=== PATIENT | female | born 1970 | race Hispanic/Latino ===

== ENCOUNTER 2019-06-23 09:30 | Emergency (ER) | payer BC, SELFPAY | END 2019-06-23 10:36 | disposition home or self-care (01) | LOC: ERS 09:30 | DX: T22.111A Burn of first degree of right forearm, initial encounter (principal); F17.210 Nicotine dependence, cigarettes, uncomplicated; X10.0XXA Contact with hot drinks, initial encounter | CPT/HCPCS: 99283 ==

== ENCOUNTER 2020-06-06 21:40 | Inpatient (IN) | payer SELFPAY ==
[~2020-06-06 21:40] MED LIST: Iopamidol-370 76% 500 ML 1 ML ONE
[2020-06-06 22:30] LABS: Bacteria/HPF None Seen HPF (None Seen); Bilirubin Negative (Negative); Blood, Urine Negative (Negative); Clarity Clear (Clear); Glucose, Urine (Dipstick) Greater than 1000 mg/dL (Negative); Ketone, Urine Trace mg/dL (Negative); Leukocyte Negative Leu/uL (Negative); Nitrite Negative (Negative); Protein, Urine (Dipstick) 30 mg/dL (Neg-Trace); RBC/HPF 0-3 HPF (0-3); Specific Gravity, Urine 1.041 (1.002-1.036)
[2020-06-06] MEDS ORDERED: Ondansetron PF 4 MG/2 ML Vial ONE (23:14)
[2020-06-06] MEDS ORDERED: Morphine 4 MG/ML VIAL ONE (23:14)
[2020-06-06 23:42] LABS: ALT (SGPT) 49 U/L (8-55); AST (SGOT) 52 U/L (5-34); Alkaline Phosphatase 224 U/L (40-110); Anion Gap 14 mmol/L (10-20); BUN (Urea Nitrogen) 8 mg/dL (9.8-20.1); Bilirubin, Total 0.9 mg/dL (0.2-1.2); Calc. Creatinine Clearance 0 mL/min (70-130); Calcium 8.9 mg/dL (7.8-10.44); Carbon Dioxide 25 mmol/L (22-29); Chloride 102 mmol/L (98-107); Estimated GFR-MDRD 73; Globulin 3.8 g/dL (2.4-3.5); Glucose 209 mg/dL (70-105); Potassium 3.4 mmol/L (3.5-5.1); Protein, Total 7.8 g/dL (6.0-8.3); Sodium 138 mmol/L (136-145)
--- NOTE | 2020-06-06 23:52 | CT ---
CT abdomen and pelvis with IV contrast HISTORY: Abdominal pain. Hematochezia. FINDINGS: The lung bases are clear. Gallbladder is surgically absent. The liver is diffusely hypodense. Solid organs are intact. No evidence of bowel obstruction or inflammation. Appendix not visualized, possibly surgically absent . A 2.3 cm hyperdense lesion within the left side of the uterine myometrium likely represents a small f ibroid. IMPRESSION : No bowel abnormalities are demonstrated to explain hematochezia. Hepato-steatosis. Prior cholecystectomy. Mild fibroid involvement of the uterus.
[2020-06-07 00:21] LABS: Hemoglobin 8.9 g/dL (12.0-16.0); Mean Corpuscular HGB CONC 29.9 g/dL (32.0-36.0); Mean Corpuscular Volume 63.5 fL (78.0-98.0); Mean Platelet Volume 7.8 fL (7.4-10.4); Platelet Count 269 thou/uL (130-400); RBC Distribution Width 19.4 % (11.5-14.5); Red Blood Cell (RBC) Count 4.66 mill/uL (4.20-5.40); White Blood Cell (WBC) Count 9.7 thou/uL (4.8-10.8)
[2020-06-07 00:22] LABS: Reflex for Review?? YES
[2020-06-07 00:33] LABS: #Basophils 0.1 thou/uL (0.0-0.2); #Eosinphils 0.2 thou/uL (0.0-0.7); #Lymphocytes 2.7 thou/uL (1.20-3.40); #Monocytes 0.6 thou/uL (0.11-0.59); #Neutrophils 6.2 thou/uL (1.40-6.50); %Basophils 0.6 % (0.0-1.0); %Eosinophils 1.9 % (0.0-10.0); %Lymphocytes 28.1 % (21.0-51.0); %Monocytes 5.9 % (0.0-10.0); %Neutrophils 63.5 % (42.0-75.0); Anisocytosis MODERATE=16-30 cells (100X) (0-5/hpf); Elliptocytes SLIGHT = 2-5 cells (100X) (0-1/hpf); MDiff Complete? YES; Microcytosis SLIGHT = 6-15 cells (100X) (0-5/hpf); Polychromasia SLIGHT = 2-3 cells (100X) (0-2/hpf)
[2020-06-07] MEDS ORDERED: Pantoprazole 40 MG VIAL ONE ×2 (01:02→08:25)
[2020-06-07] MEDS ORDERED: Morphine 4 MG/ML VIAL ONE ×3 (01:10→12:36)
--- NOTE | 2020-06-07 02:44 | PDOC.HHP ---
Hospitalist HPI - History of Present Illness Melena and bright red blood per rectum History of Present Illness: 50-year-old morbidly obese woman with no known past medical history presented to the emergency department with a complaint of 3-day history of melena and passing bright red blood per rectum. Patient reports melena and bloody diarrhea with associated abdominal pain. Pain located in the epigastrium. Maximum intensity 10/10, relieved by IV morphine. No vomiting. Patient denies any fever. This is her first episode of GI bleed. Her hemoglobin in the ED was 8.9. CT abdomen and pelvis done in the ED was unremarkable. No bloody bowel movements since presentation to the ED. she was complaining of epigastric pain during my examination. She takes ibuprofen sometimes for pain. Patient is admitted for further management. Hospitalist ROS - Review of Systems Other: Except as documented, all other systems reviewed and negative. Hospitalist History - Past Medical History Other Medical History: No pertinent medical history. - Family History Family History: reports: diabetes mellitus (Moderate) - Social History Smoking Status: Current every day smoker Alcohol: reports: Occassional Drugs: reports: none Living Situation: With Family - Exam General Appearance: NAD, awake alert General - other findings: Morbidly obese Eye: PERRL, anicteric sclera ENT: normocephalic atraumatic, moist mucosa Neck: supple, symmetric, no JVD Heart: RRR, no murmur, no gallops Respiratory: CTAB, no wheezes, no rales, no ronchi Gastrointestinal: soft, tender to palpation (Epigastrium and right upper quad rant) Extremities: no cyanosis, no edema Skin: normal turgor, no rashes Neurological: cranial nerve grossly intact, no weakness, no focal deficits Musculoskeletal: normal tone, normal strength Psychiatric: normal affect, normal behavior, A&O x 3 Hospitalist Results - Labs Result Diagrams: 06/06/20 23:14 06/06/20 23:14 Lab results: WBC 9.7 thou/uL (4.8-10.8) 06/06/20 23:14 Hgb 8.9 g/dL (12.0-16.0) L 06/06/20 23:14 Hct 29.6 % (36.0-47.0) L 06/06/20 23:14 MCV 63.5 fL (78.0-98.0) L 06/06/20 23:14 Plt Count 269 thou/uL (130-400) 06/06/20 23:14 Neutrophils % 63.5 % (42.0-75.0) 06/06/20 23:14 Sodium 138 mmol/L (136-145) 06/06/20 23:14 Potassium 3.4 mmol/L (3.5-5.1) L 06/06/20 23:14 Chloride 102 mmol/L (98-107) 06/06/20 23:14 Carbon Dioxide 25 mmol/L (22-29) 06/06/20 23:14 BUN 8 mg/dL (9.8-20.1) L 06/06/20 23:14 Creatinine 0.82 mg/dL (0.6-1.1) 06/06/20 23:14 Glucose 209 mg/dL (70-105) H 06/06/20 23:14 Calcium 8.9 mg/dL (7.8-10.44) 06/06/20 23:14 Total Bilirubin 0.9 mg/dL (0.2-1.2) 06/06/20 23:14 AST 52 U/L (5-34) H 06/06/20 23:14 ALT 49 U/L (8-55) 06/06/20 23:14 Alkaline Phosphatase 224 U/L (40-110) H 06/06/20 23:14 Serum Total Protein 7.8 g/dL (6.0-8.3) 06/06/20 23:14 Albumin 4.0 g/dL (3.5-5.0) 06/06/20 23:14 Urine Ketones Trace mg/dL (Negative) A 06/06/20 22:05 Urine Blood Negative (Negative) 06/06/20 22:05 Urine Nitrite Negative (Negative) 06/06/20 22:05 Ur Leukocyte Esterase Negative Francisco/uL (Negative) 06/06/20 22:05 Urine RBC 0-3 HPF (0-3) 06/06/20 22:05 Urine WBC 4-6 HPF (0-3) A 06/06/20 22:05 Ur Squamous Epith Cells 7-10 HPF (0-3) A 06/06/20 22:05 Urine Bacteria None Seen HPF (None Seen) 06/06/20 22:05 Hospitalist H&P A/P - Problem (1) GI bleed Code(s): K92.2 - GASTROINTESTINAL HEMORRHAGE, UNSPECIFIED Status: Acute (2) Acute blood loss anemia Code(s): D62 - ACUTE POSTHEMORRHAGIC ANEMIA Status: Acute (3) Morbid obesity Code(s): E66.01 - MORBID (SEVERE) OBESITY DUE TO EXCESS CALORIES Status: Acute (4) Hyperglycemia Code(s): R73.9 - HYPERGLYCEMIA, UNSPECIFIED Status: Acute - Plan Plan: Admit to the medical floor. Keep n.p.o. Start IV Protonix. Hydrate with IV normal saline. Monitor H&H every 6 hours. Transfuse as needed for hemoglobin less than 7. GI consult. Check hemoglobin A1c.
[2020-06-07] MEDS: Dextrose 5 % And 0.9 % NaCl 1,000 ML IV SCH ×2 (03:46→16:46)
[2020-06-07] MEDS ORDERED: Morphine 2 MG/ML VIAL ONE (04:30)
[2020-06-07] MEDS: Morphine 2 MG/ML VIAL SLOW IVP PRN ×5 (04:33→21:49)
[2020-06-07 06:02] LABS: Hemoglobin A1c 9.1 % (4.0-6.0)
[2020-06-07 06:12] LABS: ALT (SGPT) 55 U/L (8-55); AST (SGOT) 69 U/L (5-34); Albumin 3.8 g/dL (3.5-5.0); Alkaline Phosphatase 203 U/L (40-110); Anion Gap 13 mmol/L (10-20); BUN (Urea Nitrogen) 8 mg/dL (9.8-20.1); Bilirubin, Total 1.1 mg/dL (0.2-1.2); Calc. Creatinine Clearance 0 mL/min (70-130); Calcium 8.5 mg/dL (7.8-10.44); Carbon Dioxide 25 mmol/L (22-29); Chloride 102 mmol/L (98-107); Estimated GFR-MDRD 79; Globulin 3.4 g/dL (2.4-3.5); Glucose 219 mg/dL (70-105); Potassium 3.5 mmol/L (3.5-5.1); Protein, Total 7.2 g/dL (6.0-8.3); Sodium 136 mmol/L (136-145)
[2020-06-07 06:14] LABS: Hemoglobin 8.3 g/dL (12.0-16.0)
[2020-06-07 06:27] LABS: INR-International Normal Ratio 1.1; Prothrombin Time 14.3 sec (12.0-14.7)
[2020-06-07] MEDS: Pantoprazole 40 MG VIAL IVP SCH ×2 (08:40→20:56)
[2020-06-07] MEDS ORDERED: Ondansetron PF 4 MG/2 ML Vial ONE (09:24)
[2020-06-07] MEDS: Ondansetron PF 4 MG/2 ML Vial IVP PRN ×3 (09:31→21:48)
[2020-06-07 11:03] LABS: SARS-CoV-2 MS2 Positive; SARS-CoV-2 N Gene Negative; SARS-CoV-2 S Gene Negative; SARS-CoV-2 by NAA Not Detected (NotDetected); SARS-CoV-2 orf1ab Negative
[2020-06-07] MEDS: Acetaminophen 325 MG/10.15 ML UDCUP PO PRN (12:30)
[2020-06-07] MEDS ORDERED: Acetaminophen 325 MG TAB ONE (12:33)
[2020-06-07 12:50] LABS: Hemoglobin 8.1 g/dL (12.0-16.0)
[2020-06-07 15:05] VITALS: BMI 43.0
[2020-06-07] MEDS ORDERED: GoLYTELY 4,000 ml Bottle PO SCH (17:00)
--- NOTE | 2020-06-07 17:21 | PDOC.EVN ---
Event Note - Event Note Event Note: Chart reviewed. Patient seen. Denies chest pain or shortness of breath. Vital signs are stable. Awaiting gastroenterology service consult.
[2020-06-07 18:15] LABS: Hemoglobin 8.2 g/dL (12.0-16.0)
[2020-06-08 00:16] LABS: Hemoglobin 7.8 g/dL (12.0-16.0)
[2020-06-08] MEDS: Morphine 2 MG/ML VIAL SLOW IVP PRN ×4 (03:46→21:36)
[2020-06-08] MEDS: Ondansetron PF 4 MG/2 ML Vial IVP PRN ×3 (03:46→21:37)
[2020-06-08] MEDS: Dextrose 5 % And 0.9 % NaCl 1,000 ML IV SCH ×2 (06:37→14:10)
[2020-06-08] MEDS: Pantoprazole 40 MG VIAL IVP SCH ×2 (08:35→21:40)
[2020-06-08] MEDS ORDERED: FLU VACC QS2020-21(6MOS UP)/PF 60 MCG/0.5 ML SYRINGE IM ONE (09:00)
--- NOTE | 2020-06-08 09:13 | CON ---
DATE OF CONSULTATION: 06/07/2020 REASON FOR CONSULTATION: Abdominal pain, hematochezia. HISTORY OF PRESENT ILLNESS: Mindi Zambrano is a very pleasant 50-year-old female seen in the ER today with abdominal pain hematochezia. The patient has been having abdominal pain over the last 3 to 4 days. The pain is over the epigastric area and periumbilical area and also across the . The pain is mild to moderate. She has seen rectal bleeding at the same duration. The bleeding is bright red and does not appear to be melenic stool. She says the blood is definitely bright red blood. Since admission to the hospital, she has had no bleeding. She had no similar episodes in the past. The patient denies any straining or pushing hard to have bowel movements. The patient has had a cholecystectomy many years ago for gallstone, and since her surgery, she has had always loose stools, multiple times. The patient had abdominal CAT scan in the ER, which revealed no pathology. Since admission, the patient has had no stool or any bleeding anymore. She has some abdominal pain off and on, but the pain is less than before. There is no nausea, no vomiting, no . There is no family history of any colon cancer. She has no other medical history. ALLERGIES: PENICILLIN, CAUSES ANAPHYLACTIC SHOCK. SOCIAL HISTORY: Patient is a . She does smoke less than 1/2 packet of cigarettes per day. She does not drink alcohol. No drug abuse. MEDICAL ILLNESS: Obesity. Otherwise, no history of hypertension, diabetes, heart disease, or lung disease. SURGERIES: 1. . 2. Appendectomy. 3. Cholecystectomy. FAMILY HISTORY: Mother of massive heart attack. She also had diabetes and hypertension. No family history of any cancer. MEDICATION AT HOME: None. SYSTEM REVIEW: 10-point system review; FACILITY DESIGNER: No syncope. No TIA. No seizure disorder. HEAD: No chronic headache. No syncope. EYES: No diplopia. No impaired vision. ENT: Normal. NECK: No stiffness or any limitation of movement. BREASTS: No masses. LUNGS: No chronic coughing, hemoptysis, dyspnea. CARDIOVASCULAR SYSTEM: No chest pain. No palpitation. No dyspnea, orthopnea, or PND. GI: Abdominal pain, hematochezia. : No dysuria, hematuria. MUSCULOSKELETAL: Nonrelevant. NEURO: Nonrelevant. ENDOCRINE: Nonrelevant. HEMATOLOGICAL: Nonrelevant. PHYSICAL EXAMINATION: GENERAL: She is obese, appears very comfortable. She is a good historian. VITAL SIGNS: She is afebrile. Pulse is 76, blood pressure 130/70. HEENT: Conjunctivae are clear. NECK: Supple. No adenitis or thyromegaly noted. CARDIOVASCULAR SYSTEM: Normal heart sounds. LUNGS: Clear to auscultation. ABDOMEN: Pendulous. Soft. However, she is diffusely tender all over the abdomen. There is no rebound or guarding. EXTREMITIES: Reveal no edema. LABORATORY DATA: Shows mild anemia. Hemoglobin on admission 8.9, dropping down to 8.1 today. Hematocrit 29.6 and dropping to 27.6, MCV 63.5, platelet count is 269,000, WBC 9700. Hemoglobin is stable the last 2 blood draws, one at 5:30 this morning and another one at 12:35. Her chemistry panel: Sodium 136, potassium 3.5, chloride 100, bicarb is 25, BUN is 8, creatinine 0.77, glucose 219, calcium 8.5, bilirubin 1.1, AST is 69, ALT 55, alkaline phosphatase 203, albumin 3.8. An abdominal CAT scan done show no acute pathology. She does have fatty liver on CAT scan. No dilation of the CBD. CLINICAL IMPRESSION: 1. Abdominal pain, hematochezia, etiology unclear. Anemia is likely to be . The patient had not seen a doctor for many years. We do not have baseline CBC. 2. Obesity. 3. Fatty liver. 4. Cholecystectomy. 5. Appendectomy. 6. . RECOMMENDATION: 1. Clear liquid diet. 2. Serial H and H. 3. Empiric PPI. 4. EGD and colonoscopy tomorrow. I did talk to Ms. Zambrano about the procedure in detail. I explained about the prep including drinking GoLYTELY prep, etc. She fully understood the procedure and risks. I will plan for EGD and colonoscopy tomorrow. Also recommend followup LFTs and obtain viral markers. Job ID: [id number]
[2020-06-08] MEDS ORDERED: PROPOFOL 200 MG/20 ML VIAL ONE (09:39)
--- NOTE | 2020-06-08 12:06 | OP ---
DATE OF PROCEDURE: 06/08/2020 PROCEDURES PERFORMED: 1. Esophagogastroduodenoscopy (diagnostic). 2. Colonoscopy (diagnostic). INDICATION FOR PROCEDURE: Melena, hematochezia, anemia. DESCRIPTION OF PROCEDURE: After the risks and benefits of the procedures were explained to the patient including risks of bleeding, infection, perforation, reactions to anesthesia, aspiration and/or pain, informed consent was obtained. The patient was then taken to the endoscopy suite, where she was maneuvered into the left lateral decubitus position, followed by introduction of deep sedation via propofol and anesthesia support. Once adequate sedation was achieved, the standard gastroscope was introduced into the mouth with intubation of the esophagus, stomach, and the proximal small intestines with the findings listed below. On conclusion of this portion of the procedure, all equipment was removed from the patient and the bed was rotated 180 degrees in anticipation of the colonoscopy. After a digital rectal examination was performed, the standard colonoscope was then introduced into the rectum and advanced to the terminal ileum without difficulty. The quality of the prep was good with a moderate amount of retained liquid stool that was easily suctioned with the colonoscope. The patient tolerated the procedures well with no immediate perioperative complications. On conclusion of the procedure, all equipment was removed from the patient. She was transferred to PACU in satisfactory condition. EGD FINDINGS: Esophagus: Normal-appearing mucosa was seen in the proximal, mid, and distal esophagus. There was no evidence of erosions, ulcerations, mass lesions, or active/recent bleeding. Stomach: Normal-appearing mucosa was seen in the gastric cardia, fundus, body, greater curvature, antrum, and incisura. There was no evidence of erosions, ulcerations, mass lesions, or active/recent bleeding. Duodenum: Normal-appearing mucosa was seen in both the duodenal bulb and second portion of the duodenum. There was no evidence of erosions, ulcerations, mass lesions, or active/recent bleeding. IMPRESSION: 1. Normal upper endoscopy. 2. No bleeding seen during this examination. COLONOSCOPY FINDINGS: Digital rectal exam: Small external hemorrhoids along with perianal skin tags were seen on external examination, however, large internal hemorrhoids were palpated with no abnormalities and sphincterotome. Colon findings: Normal-appearing mucosa was seen within the terminal ileum. Normal mucosa was also seen at the ileocecal valve and appendiceal orifice. Normal-appearing mucosa was then seen in the cecum, ascending colon, transverse colon, descending colon, sigmoid colon, and rectum. There was no evidence of diverticulosis within the sigmoid colon. However, on rectal retroflexion, large internal hemorrhoids were seen with one particular hemorrhoid seen prolapsing through the anal canal during the procedure and overlying ulceration. There was also significant hyperemia associated with these internal hemorrhoids. IMPRESSION: 1. Large internal hemorrhoids with small ulceration along a larger prolapsing hemorrhoids, being a likely source of her recent hematochezia. 2. Small external hemorrhoids with perianal skin tags (likely not contributing to her recent gastrointestinal bleed). 3. Otherwise, normal colonoscopy. RECOMMENDATIONS: 1. Would continue to trend the patient's H and H and transfuse as necessary to maintain an H and H of 7/21. 2. Continue to monitor clinically for signs of active GI bleeding. 3. Would recommend hydrocortisone suppositories as part of treatment for her large internal hemorrhoids. 4. Would recommend a higher fiber diet and avoidance of spending prolonged amounts of time in the toilet as part of conservative measures for internal and external hemorrhoids. 5. If the patient's H and H stay stable over the next 24 hours, she could be potentially discharged to the outpatient setting and following up with Dr. Clair ely. 6. If the patient does continue to have increased bleeding and/or decrease in her H and H, I would then consider a tagged red cell scan for further localization of her bleeding. We will continue to follow peripherally for now. Please call with any questions. Job ID: [id number]
[2020-06-08] MEDS ORDERED: Insulin Regular 300 UNITS/3 ML VIAL SC PRN ×2 (22:24)
[2020-06-08] MEDS ORDERED: Dextrose 50% Abboject 50 ML SYRINGE SLOW IVP PRN (22:24)
[2020-06-08] MEDS ORDERED: Dextrose 5% in Water 1,000 ML IV PRN (22:24)
--- NOTE | 2020-06-08 22:27 | PDOC.HOSPP ---
- Subjective Encounter Date: 06/08/20 Encounter Time: 15:00 Subjective: Patient seen and examined for GI bleeding. Underwent EGD and colonoscopy. No new rectal bleeding. Denies any nausea, vomiting or abdominal pain. No chest pain or shortness of breath reported. - Objective Vital Signs & Weight: Vital Signs (12 hours) Temp Pulse Resp BP BP Pulse Ox 06/08/20 19:40 98.6 F 86 18 112/68 97 06/08/20 16:42 97.9 F 87 16 124/65 99 06/08/20 13:00 88 16 121/71 99 06/08/20 11:55 98.5 F 88 20 105/69 98 Weight Admit Weight 235 lb Weight 235 lb I&O: 06/07/20 06/08/20 06/09/20 06:59 06:59 06:59 Intake Total 1300 1600 Balance 1300 1600 Result Diagrams: 06/07/20 23:58 06/07/20 05:35 Radiology Reviewed by me: Yes (CT abdomenNo acute abnormality) Hospitalist ROS - Review of Systems Respiratory: denies: cough, dry, shortness of breath, hemoptysis, SOB with excertion, pleuritic pain, sputum, wheezing, other Cardiovascular: denies: chest pain, palpitations, orthopnea, paroxysmal noc. dyspnea, edema, light headedness, other - Medication Medications: Active Medications Generic Name Dose Route Start Last Admin Trade Name Freq PRN Reason Stop Dose Admin Acetaminophen 650 mg 06/07/20 12:27 06/07/20 12:30 Acetaminophen 325 Mg/10.15 Ml Udcup PO 650 mg Q6H PRN Administration Pain Ondansetron HCl 4 mg 06/07/20 08:50 06/08/20 21:37 Ondansetron Pf 4 Mg/2 Ml Vial IVP 4 mg Q6H PRN Administration Nausea/Vomiting - Exam General Appearance: NAD Neck: supple, no JVD Heart: RRR, no gallops, no rubs, normal peripheral pulses Respiratory: no wheezes, no rales, no ronchi, normal chest expansion Gastrointestinal: soft, non-tender, normal bowel sounds, no guarding, no rigidity Extremities: no cyanosis, no clubbing Neurological: no new deficit Musculoskeletal: generalized weakness Psychiatric: normal affect, A&O x 3 Hosp A/P - Plan DVT proph w/SCDs Acute GI bleeding due to internal hemorrhoids Acute blood loss anemia Generalized weakness due to above Fibroid uterus Hypokalemia Chronic hypochromic microcytic anemia suspected due to iron deficiency Morbid obesity with a BMI 43 New diagnosis of diabetes with a hemoglobin A1c 9.1 Abnormal LFTs probably due fatty liver Fibroid uterus on the CT scan Penicillin ALLERGY Plan: Monitor H&H closely. Change PPI to po. Check orthostatic vitals. One dose of IV iron. Add multivitamins. Patient was advised to take iron supplementation on a chronic basis. Consult dietitian for education on dietary modification for internal hemorrhoids as well as diabetes mellitus type II.
[2020-06-09] MEDS: Hydrocortisone Acetate 25 MG Suppository PR SCH ×4 (01:00→21:15)
[2020-06-09] MEDS: Acetaminophen 325 MG/10.15 ML UDCUP PO PRN ×2 (02:17→09:44)
[2020-06-09] MEDS ORDERED: Iron Sucrose Complex 200 MG in Sodium Chloride 0.9% 100 ML IVPB SCH (07:00)
[2020-06-09] MEDS ORDERED: Iron, Sodium Ferric Gluconate 250 MG in Sodium Chloride 0.9% 100 ML IVPB SCH (07:00)
[2020-06-09] MEDS ORDERED: Acetaminophen 650 MG/20.3 ML UDCUP PO PRN (07:12)
[2020-06-09 07:23] LABS: Hemoglobin 7.7 g/dL (12.0-16.0); Platelet Count 242 thou/uL (130-400)
[2020-06-09] MEDS: Multivit, Therapeutic 1 TAB PO SCH (09:43)
[2020-06-09] MEDS: Potassium Chloride 20 MEQ TAB PO SCH ×2 (09:43→17:24)
[2020-06-09] MEDS ORDERED: diphenhydrAMINE 50 MG/ML VIAL ONE (13:15)
[2020-06-09] MEDS ORDERED: EPINEPHrine 1 mg/ml MDV (1ml Charge) IM PRN (13:16)
[2020-06-09] MEDS ORDERED: Famotidine/PF 20 mg/2ml Vial SLOW IVP SCH ×2 (13:30→21:00)
[2020-06-09] MEDS ORDERED: diphenhydrAMINE 50 MG/ML VIAL IVP SCH (14:00)
[2020-06-09] MEDS ORDERED: diphenhydrAMINE 50 MG/ML VIAL IM SCH (14:45)
--- NOTE | 2020-06-09 18:42 | PDOC.HOSPP ---
- Subjective Encounter Date: 06/09/20 Encounter Time: 09:30 Subjective: Patient seen and examined for GI bleeding. No overnight events. No new rectal bleeding. Denies any nausea, vomiting or abdominal pain. - Objective Vital Signs & Weight: Vital Signs (12 hours) Temp Pulse Resp BP Pulse Ox 06/09/20 16:00 98.5 F 84 17 131/67 96 06/09/20 12:08 98.5 F 85 19 110/73 98 06/09/20 07:41 94 L 06/09/20 07:12 98.5 F 80 19 103/61 94 L Weight Admit Weight 235 lb Weight 235 lb I&O: 06/08/20 06/09/20 06/10/20 06:59 06:59 06:59 Intake Total 1300 1600 900 Balance 1300 1600 900 Result Diagrams: 06/09/20 07:10 06/07/20 05:35 Additional Labs: Accuchecks 06/09/20 06/09/20 16:09 06:22 POC Glucose 182 H 152 H Abnormal Lab Results - Last 48 hrs 06/07/20 23:58: Hgb 7.8 L, Hct 26.9 L 06/09/20 07:10: Hgb 7.7 L, Hct 26.1 L Laboratory Tests 06/07/20 05:35 Hemoglobin A1c 9.1 H Hospitalist ROS - Review of Systems Cardiovascular: denies: chest pain, palpitations, orthopnea, paroxysmal noc. dyspnea, edema, light headedness, other Gastrointestinal: denies: nausea, vomiting, abdominal pain, diarrhea, constipation, melena, hematochezia, other - Medication Medications: Active Medications Generic Name Dose Route Start Last Admin Trade Name Freq PRN Reason Stop Dose Admin Hydrocortisone Acetate 25 mg 06/08/20 21:00 06/09/20 09:43 Hydrocortisone Acetate 25 Mg Suppository KS 25 mg BID ALBA Administration Multivitamins 1 tab 06/09/20 09:00 06/09/20 09:43 Multivit, Therapeutic 1 Tab PO 1 tab DAILY ALBA Administration Ondansetron HCl 4 mg 06/07/20 08:50 06/08/20 21:37 Ondansetron Pf 4 Mg/2 Ml Vial IVP 4 mg Q6H PRN Administration Nausea/Vomiting Pantoprazole Sodium 40 mg 06/09/20 09:00 06/09/20 09:43 Pantoprazole 40 Mg Tab PO 40 mg DAILY ALBA Administration Potassium Chloride 20 meq 06/09/20 08:00 06/09/20 17:24 Potassium Chloride 20 Meq Tab PO 20 meq BID-WM ALBA Administration - Exam General Appearance: NAD Neck: supple, no JVD Heart: RRR, no gallops, no rubs, normal peripheral pulses Respiratory: no wheezes, no rales, no ronchi, normal chest expansion Gastrointestinal: soft, non-tender, non-distended, normal bowel sounds, no guarding, no rigidity Extremities: no cyanosis, no clubbing Neurological: no new deficit Psychiatric: normal affect, A&O x 3 Hosp A/P - Plan DVT proph w/SCDs Acute GI bleeding due to internal hemorrhoids Acute blood loss anemia Generalized weakness due to above Fibroid uterus Hypokalemia Chronic hypochromic microcytic anemia suspected due to iron deficiency Morbid obesity with a BMI 43 New diagnosis of diabetes with a hemoglobin A1c 9.1 Abnormal LFTs probably due fatty liver Fibroid uterus on the CT scan Penicillin ALLERGY Plan: Plan discussed with gastroenterology. Continue hydrocortisone suppository for internal hemorrhoids. Will start IV iron. Continue other medications as above. Patient is stable for discharge after iron infusion. Patient was educated on high-fiber diet and diabetes. Update at 1 PM: Patient had an allergic reaction after iron infusion. She was started on IV Benadryl and Pepcid Pepcid she continues to feel generally weak and fatigue along with dizziness. Fall precautions. Will monitor overnight and possible discharge in a.m. if stable. Continue Benadryl and Pepcid for now. EpiPen as needed.
[2020-06-09 19:58] VITALS: TEMP 98.6
--- NOTE | 2020-06-09 20:57 | PRG ---
DATE OF SERVICE: 06/09/2020 REASON FOR CONSULTATION: Abdominal pain, hematochezia. SUBJECTIVE: After undergoing both the upper endoscopy and colonoscopy yesterday, the patient has not had any further episodes of abdominal pain nor hematochezia. However, earlier today with the infusion of IV iron, she did have increased swelling of her arms, legs, and shortness of breath concerning for possible allergic reactions/adverse reaction. However, this subsided with initiation of IV Benadryl and Pepcid. Otherwise, she denies any nausea, vomiting, fevers, chills, abdominal pain, hematemesis, melena, or hematochezia. OBJECTIVE: VITAL SIGNS: Temperature 98.6, pulse 83, blood pressure 123/68, respiratory rate 18, and saturating 99% on 3 L nasal cannula. GENERAL: The patient was lying in bed, in no acute distress. Alert and oriented x4. Morbidly obese. CARDIOVASCULAR: Regular rate and rhythm. RESPIRATORY: Clear to auscultation bilaterally. ABDOMEN: Normoactive bowel sounds. Soft, nontender, and nondistended . EXTREMITIES: No cyanosis, clubbing, or edema. LABORATORY DATA: Hemoglobin of 7.7, hematocrit 26.1. IMAGING DATA: The patient underwent both upper and lower endoscopy on June 08, 2020 with a normal upper endoscopy during that portion of the examination. However, during the colonoscopy, she had significantly large internal hemorrhoids with a small ulceration along a larger prolapsing internal hemorrhoid likely contributing to her recent hematochezia. ASSESSMENT AND PLAN: The patient is a 50-year-old female with past medical history of morbid obesity, presenting with complaints of dark-colored stools (likely due to Pepto-Bismol administration) and hematochezia secondary to internal hemorrhoids. Gastrointestinal bleeding. The patient initially presented to the hospital with increased generalized abdominal pain in addition to darker-colored stools, concerning for the presence of melena, hematochezia, and decreased H and H when compared to previous. She subsequently underwent upper endoscopy and colonoscopy on June 08, 2020 with normal findings seen on the upper endoscopy and only large internal hemorrhoids on colonoscopy with ulceration likely contributing to her hematochezia. Upon further questioning the patient, her darker colored stools were seen in conjunction with taking Pepto-Bismol as an outpatient with the bismuth substrate likely contributing to the darker black colored stools. Since the colonoscopy, the patient has had no further episodes of hematochezia, and abdominal pain has significantly improved. RECOMMENDATIONS: 1. Would continue to trend her H and H and transfuse as necessary to maintain an H and H of /. 2. Continue to monitor clinically for signs of active GI bleeding. 3. We will continue hydrocortisone suppositories as part of treatment for her large internal hemorrhoids likely contributing to her bleeding. 4. Would recommend a higher fiber diet. 5. If the patient continues to have any increased bleeding or significant decrease in her H and H, I would then consider a tagged red cell scan for further localization of her bleeding. Given the stabilization of her status, she could be potentially discharged to an outpatient setting with followup with Dr. Self in 2 to 3 weeks. We will sign off at this time. Please call with any questions. Job ID: [id number]
[2020-06-09] MEDS: diphenhydrAMINE 25 MG CAP PO SCH (21:15)
[2020-06-09] MEDS: Famotidine 20 MG TAB PO SCH (21:15)
[2020-06-10 07:43] VITALS: BP 106/62
[2020-06-10] MEDS: diphenhydrAMINE 25 MG CAP PO SCH (08:59)
[2020-06-10] MEDS: Multivit, Therapeutic 1 TAB PO SCH (08:59)
[2020-06-10] MEDS: Famotidine 20 MG TAB PO SCH (08:59)
[2020-06-10] MEDS: Potassium Chloride 20 MEQ TAB PO SCH (08:59)
[2020-06-10] MEDS: Hydrocortisone Acetate 25 MG Suppository PR SCH (09:00)
--- NOTE | 2020-06-10 17:20 | DIS ---
DATE OF ADMISSION: 06/07/2020 DATE OF DISCHARGE: 06/10/2020 DISCHARGE DISPOSITION: Home. PRIMARY DISCHARGE DIAGNOSIS: Lower gastrointestinal bleed secondary to large internal hemorrhoids. SECONDARY DISCHARGE DIAGNOSES: Obesity, diabetes mellitus type 2. PROCEDURES DONE DURING HOSPITALIZATION: The patient has had upper and lower endoscopies done, which showed normal upper endoscopy with no bleeding seen. Colonoscopy showed large internal hemorrhoids with small ulceration along a large prolapsing hemorrhoids, likely source of her recent hematochezia. Small external hemorrhoids with perianal skin tags likely not contributing to GI bleed. CT of the abdomen and pelvis with contrast done showed no bowel abnormalities, hepatic steatosis, mild fibroid of the uterus. H and H of 7.7 and 26, platelet count 242. INR 1.1. BUN 8, creatinine 0.7. HbA1c 9.1. Albumin 3.8. COVID-19 PCR was not detected on 06/07/2020. DISCHARGE MEDICATIONS: 1. Hydrocortisone rectal suppositories twice daily for the hemorrhoids. 2. Ferrous sulfate 325 mg p.o. twice daily. 3. Multivitamin one tablet once daily. 4. MiraLAX 17 g daily. INPATIENT CONSULT: Dr. Bert oJ for Gastroenterology. DISCHARGE PLAN: The patient to follow up with Dr. Self in 10 days. She needs to follow up with her primary care physician at [facility] in 1 week. BRIEF COURSE DURING HOSPITALIZATION: The patient initially got admitted on the with complaints of bright red blood per rectum. She has been passing these for the last 3 days prior to arrival. In view of this, she has had consultation with Dr. Bert Jo. A CT of the abdomen and pelvis with contrast done did not reveal any significant abnormalities. She has had both upper and lower endoscopies done, which showed hemorrhoids both internal and external. Her internal hemorrhoids is the likely cause of her bleeding. This has completely stopped at the time of discharge. She has had iron deficiency anemia and an attempt was done to give her IV iron, but the patient developed reaction for the same. She has been supplemented with oral iron. She is hemodynamically stable, ambulating, and is wanting to go home today. She is advised to follow up with primary care physician in 1 week. Please note I have seen and examined the patient on the day of discharge. Job ID: [id number]
== END 2020-06-10 12:18 | disposition home or self-care (01) | DRG 394 ==
LOC: ERS 21:40 → ERHOLD 06-07 01:21 → T4-A 06-07 14:57
PROVIDERS: ADMIT Internal Medicine; ATTEND Internal Medicine
PROC: 0DJ08ZZ Inspection of Upper Intestinal Tract, Via Natural or Artificial Opening Endoscopic (ICD-10-PCS; principal; 2020-06-08)
PROC: 0DJD8ZZ Inspection of Lower Intestinal Tract, Via Natural or Artificial Opening Endoscopic (ICD-10-PCS; 2020-06-08)
DX: K64.8 Other hemorrhoids (principal); D62 Acute posthemorrhagic anemia; Z68.41 Body mass index [BMI] 40.0-44.9, adult; K62.6 Ulcer of anus and rectum; Z20.828 Contact with and (suspected) exposure to other viral communicable diseases; D25.9 Leiomyoma of uterus, unspecified; E66.01 Morbid (severe) obesity due to excess calories; E87.6 Hypokalemia; F17.210 Nicotine dependence, cigarettes, uncomplicated; D50.9 Iron deficiency anemia, unspecified; E11.9 Type 2 diabetes mellitus without complications; K64.4 Residual hemorrhoidal skin tags; K76.0 Fatty (change of) liver, not elsewhere classified; Z88.0 Allergy status to penicillin; Z90.49 Acquired absence of other specified parts of digestive tract
CPT/HCPCS: 36415; 36416; 74177; 80053; 81003; 81015; 83036; 85014; 85018; 85025; 85049; 85060; 85610; 86850; 86900; 86901; 87635; 90471; 90662; 90732; 96374; 96375; 96376; C9113; G0008; G0009; J1200; J2270; J2405; J2704; J2916; J3490; Q0163; Q9967; S0028; U0003

== ENCOUNTER 2022-09-27 16:12 | Inpatient (IN) | payer SELFPAY ==
[2022-09-27 17:03] LABS: #Eosinphils 0.2 thou/uL (0.0-0.7); #Lymphocytes 2.2 thou/uL (1.20-3.40); #Monocytes 0.5 thou/uL (0.11-0.59); #Neutrophils 4.9 thou/uL (1.40-6.50); %Basophils 0.1 % (0.0-1.0); %Eosinophils 2.2 % (0.0-10.0); %Lymphocytes 28.6 % (21.0-51.0); %Monocytes 6.5 % (0.0-10.0); %Neutrophils 62.7 % (42.0-75.0); Mean Corpuscular Hemoglobin 29.4 pg (27.0-31.0); Mean Corpuscular Volume 86.3 fl (78.0-98.0); Platelet Count 159 10x3/uL (130-400); RBC Distribution Width 13.4 % (11.5-14.5); Red Blood Cell (RBC) Count 4.44 mill/uL (4.20-5.40); White Blood Cell (WBC) Count 7.8 10x3/uL (4.8-10.8)
[2022-09-27 17:28] LABS: ALT (SGPT) 20 U/L (8-55); AST (SGOT) 17 U/L (5-34); Albumin 4.1 g/dL (3.5-5.0); Alkaline Phosphatase 108 U/L (40-110); Anion Gap 13 mmol/L (10-20); BUN (Urea Nitrogen) 10 mg/dL (9.8-20.1); Bilirubin, Total 0.7 mg/dL (0.2-1.2); Calc. Creatinine Clearance 0 mL/min (70-130); Calcium 9.2 mg/dL (7.8-10.44); Carbon Dioxide 24 mmol/L (22-29); Chloride 106 mmol/L (98-107); Estimated GFR 96; Globulin 3.4 g/dL (2.4-3.5); Glucose 96 mg/dL (70-105); Lipase 38 U/L (8-78); Potassium 3.5 mmol/L (3.5-5.1); Protein, Total 7.5 g/dL (6.0-8.3); Sodium 139 mmol/L (136-145)
[2022-09-27] MEDS ORDERED: Aspirin Chewable 81 MG TAB ONE (19:27)
[2022-09-27] MEDS ORDERED: Morphine 4 MG/ML VIAL ONE (19:27)
[2022-09-27 20:06] LABS: Bilirubin Negative (Negative); Blood, Urine Negative (Negative); Clarity Clear (Clear); Glucose, Urine (Dipstick) Normal (Negative); Ketone, Urine Negative (Negative); Leukocyte Negative Leu/uL (Negative); Nitrite Negative (Negative); Protein, Urine (Dipstick) Negative (Neg-Trace); Specific Gravity, Urine 1.025 (1.002-1.036); Urobilinogen 6 mg/dL (Less than 2); pH, Urine 7.5 (5.0-9.0)
[2022-09-27] MEDS ORDERED: LORazepam 2 MG/ML SYR.(CARPUJECT) ONE (21:03)
[2022-09-27 23:24] LABS: Troponin I Less than 0.010 ng/mL (< 0.028)
[2022-09-27 23:52] VITALS: BMI 43.0
[2022-09-28] MEDS ORDERED: Acetaminophen 500 MG TAB PO PRN (00:17)
[2022-09-28] MEDS ORDERED: Promethazine 25 MG TAB PO SCH (00:30)
[2022-09-28] MEDS ORDERED: Nitroglycerin 0.4 MG TAB (25 Tab Bottle) SL PRN (02:01)
[2022-09-28] MEDS ORDERED: Acetaminophen 325 MG TAB PO PRN (02:01)
[2022-09-28] MEDS ORDERED: Dextrose 50% Abboject 50 ML SYRINGE SLOW IVP PRN (02:46)
[2022-09-28] MEDS ORDERED: Dextrose 5% in Water 1,000 ML IV PRN (02:46)
[2022-09-28] MEDS ORDERED: HumaLOG 300 UNITS/3 ML VIAL SC PRN ×2 (02:46)
[2022-09-28] MEDS ORDERED: Meclizine HCl 12.5 MG TAB PO PRN (02:47)
[2022-09-28] MEDS ORDERED: HYDROcodone/Acetaminophen 5/325 mg Tablet PO PRN (03:02)
[2022-09-28] MEDS ORDERED: Ketorolac Tromethamine 30 MG/ML VIAL IVP SCH (03:15)
[2022-09-28 04:17] LABS: Amphetamine Not Detected (NotDetected); Barbiturates Screen Not Detected (NotDetected); Benzodiazepine Screen Detected (NotDetected); Cocaine Metabolite Screen Not Detected (NotDetected); Methadone Not Detected (NotDetected); Methamphetamine Not Detected (NotDetected); Opiate Screen Detected (NotDetected); Oxycodone Screen Not Detected (NotDetected); Phencyclidine (PCP) Not Detected (NotDetected); THC/Cannabinoid Screen Not Detected (NotDetected); Tricyclic Screen Not Detected (NotDetected)
[2022-09-28 05:41] LABS: #Basophils 0.1 thou/uL (0.0-0.2); #Eosinphils 0.2 thou/uL (0.0-0.7); #Lymphocytes 2.4 thou/uL (1.20-3.40); #Monocytes 0.4 thou/uL (0.11-0.59); #Neutrophils 2.5 thou/uL (1.40-6.50); %Basophils 1.1 % (0.0-1.0); %Eosinophils 3.2 % (0.0-10.0); %Lymphocytes 43.5 % (21.0-51.0); %Monocytes 6.7 % (0.0-10.0); %Neutrophils 45.5 % (42.0-75.0); Hemoglobin 11.5 g/dL (12.0-16.0); Mean Corpuscular HGB CONC 33.7 g/dL (32.0-36.0); Mean Corpuscular Hemoglobin 29.2 pg (27.0-31.0); Mean Corpuscular Volume 86.8 fl (78.0-98.0); Mean Platelet Volume 10.1 fL (7.4-10.4); Platelet Count 128 10x3/uL (130-400); RBC Distribution Width 13.5 % (11.5-14.5); Red Blood Cell (RBC) Count 3.94 mill/uL (4.20-5.40); White Blood Cell (WBC) Count 5.5 10x3/uL (4.8-10.8)
[2022-09-28 05:48] LABS: Hemoglobin A1c 5.3 % (4.0-6.0)
[2022-09-28] MEDS: Levothyroxine 150 MCG TAB PO SCH (05:48)
[2022-09-28 06:09] LABS: Anion Gap 14 mmol/L (10-20); BUN (Urea Nitrogen) 9 mg/dL (9.8-20.1); Calc. Creatinine Clearance 159 mL/min (70-130); Calcium 8.7 mg/dL (7.8-10.44); Carbon Dioxide 22 mmol/L (22-29); Chloride 108 mmol/L (98-107); Cholesterol 234 mg/dl (< 200 Desired); Estimated GFR 103; Glucose 146 mg/dL (70-105); HDL Cholesterol 39 mg/dL (>60 Neg Risk); LDL Cholesterol, Calculated 146 mg/dL; Potassium 3.7 mmol/L (3.5-5.1); Sodium 140 mmol/L (136-145); Triglycerides 246 mg/dL (Less than 150)
[2022-09-28 06:10] LABS: Troponin I Less than 0.010 ng/mL (< 0.028)
[2022-09-28] MEDS ORDERED: Aspirin Chewable 81 MG TAB PO SCH (09:00)
[2022-09-28] MEDS ORDERED: ADENOSINE 60 MG/20 ML VIAL ONE (09:41)
[2022-09-28] MEDS: Ferrous Sulfate 325 MG TAB PO SCH ×2 (13:31→18:31)
[2022-09-28] MEDS: Aspirin 81 mg Enteric Coated Tablet PO SCH (13:31)
[2022-09-28] MEDS: Cyanocobalamin (Vitamin B-12) 1,000 MCG TAB PO SCH (13:31)
[2022-09-28] MEDS: Folic Acid 1 MG TAB PO SCH (13:31)
[2022-09-28] MEDS: Atorvastatin Calcium 40 MG TAB PO SCH (20:39)
[2022-09-29] MEDS: Levothyroxine 150 MCG TAB PO SCH (05:59)
[2022-09-29] MEDS ORDERED: Iopamidol-370 76% 500 ML 1 ML ONE (09:25)
[2022-09-29] MEDS: Aspirin 81 mg Enteric Coated Tablet PO SCH (09:44)
[2022-09-29] MEDS: Cyanocobalamin (Vitamin B-12) 1,000 MCG TAB PO SCH (09:44)
[2022-09-29] MEDS: Folic Acid 1 MG TAB PO SCH (09:44)
[2022-09-29] MEDS: Ferrous Sulfate 325 MG TAB PO SCH ×2 (09:45→18:13)
[2022-09-29] MEDS ORDERED: Communication Order-Pharmacy FS SCH (16:00)
[2022-09-29] MEDS: Atorvastatin Calcium 40 MG TAB PO SCH (20:18)
[2022-09-29] MEDS ORDERED: Nicotine 14 MG PATCH TD SCH (21:15)
[2022-09-30] MEDS: Folic Acid 1 MG TAB PO SCH (05:09)
[2022-09-30] MEDS: Cyanocobalamin (Vitamin B-12) 1,000 MCG TAB PO SCH (05:09)
[2022-09-30] MEDS: Levothyroxine 150 MCG TAB PO SCH (05:09)
[2022-09-30] MEDS: Aspirin 81 mg Enteric Coated Tablet PO SCH (05:09)
[2022-09-30] MEDS: Ferrous Sulfate 325 MG TAB PO SCH (05:09)
[2022-09-30 05:13] LABS: #Eosinphils 0.2 thou/uL (0.0-0.7); #Lymphocytes 2.7 thou/uL (1.20-3.40); #Monocytes 0.5 thou/uL (0.11-0.59); #Neutrophils 2.8 thou/uL (1.40-6.50); %Basophils 0.6 % (0.0-1.0); %Eosinophils 3.5 % (0.0-10.0); %Lymphocytes 42.8 % (21.0-51.0); %Neutrophils 45.2 % (42.0-75.0); Hemoglobin 12.7 g/dL (12.0-16.0); Mean Corpuscular HGB CONC 33.9 g/dL (32.0-36.0); Mean Corpuscular Hemoglobin 29.2 pg (27.0-31.0); Mean Corpuscular Volume 86.3 fl (78.0-98.0); Mean Platelet Volume 10.2 fL (7.4-10.4); Platelet Count 131 10x3/uL (130-400); RBC Distribution Width 13.3 % (11.5-14.5); Red Blood Cell (RBC) Count 4.36 mill/uL (4.20-5.40); White Blood Cell (WBC) Count 6.3 10x3/uL (4.8-10.8)
[2022-09-30 05:41] LABS: Anion Gap 11 mmol/L (10-20); BUN (Urea Nitrogen) 12 mg/dL (9.8-20.1); Calc. Creatinine Clearance 153 mL/min (70-130); Calcium 9.3 mg/dL (7.8-10.44); Carbon Dioxide 26 mmol/L (22-29); Chloride 106 mmol/L (98-107); Estimated GFR 101; Glucose 114 mg/dL (70-105); Potassium 3.9 mmol/L (3.5-5.1); Sodium 139 mmol/L (136-145)
[2022-09-30] MEDS ORDERED: Verapamil 5 MG/2 ML VIAL ONE (06:54)
[2022-09-30] MEDS ORDERED: Adenosine 6 MG/2 ML VIAL ONE (06:54)
[2022-09-30] MEDS ORDERED: Heparin 10,000 UNITS/ 10 ML VIAL ONE (06:54)
[2022-09-30] MEDS ORDERED: Nitroglycerin 50 MG/250 ML BOT 0 ML ONE (06:54)
[2022-09-30] MEDS ORDERED: Lidocaine 1% (PF) 30 ML VIAL ONE (06:54)
[2022-09-30] MEDS ORDERED: FENTANYL 50 MCG/ML 1 ML VIAL ONE (07:07)
[2022-09-30] MEDS ORDERED: Midazolam HCl 2 mg/2 ml Vial ONE (07:08)
[2022-09-30] MEDS ORDERED: Nitroglycerin 0.4 MG TAB (25 Tab Bottle) SL PRN (08:48)
[2022-09-30] MEDS ORDERED: Sodium Chloride 0.9% 200 ML IV PRN (08:48)
[2022-09-30] MEDS ORDERED: Acetaminophen/Codeine 30-300mg Tablet PO PRN ×2 (08:48)
[2022-09-30] MEDS ORDERED: Iopamidol 370 76% 100 ML VIAL ONE (09:11)
[2022-09-30 12:36] VITALS: BP 147/66; TEMP 97.5
[2022-10-01] MEDS ORDERED: FLU VACC QS2022-23(6MOS UP)/PF 60 MCG/0.5 ML SYRINGE IM ONE (09:00)
== END 2022-09-30 14:13 | disposition home or self-care (01) | DRG 69 ==
LOC: ERS 16:12 → 2SW 22:16 → OBSVTOIN 09-30 07:53
PROVIDERS: ADMIT Student in an Organized Health Care Education/Training Program; ATTEND Internal Medicine
PROC: 4A023N7 Measurement of Cardiac Sampling and Pressure, Left Heart, Percutaneous Approach (ICD-10-PCS; principal; 2022-09-30)
PROC: B2111ZZ Fluoroscopy of Multiple Coronary Arteries using Low Osmolar Contrast (ICD-10-PCS; 2022-09-30)
PROC: B2151ZZ Fluoroscopy of Left Heart using Low Osmolar Contrast (ICD-10-PCS; 2022-09-30)
DX: G45.9 Transient cerebral ischemic attack, unspecified (principal); Z68.41 Body mass index [BMI] 40.0-44.9, adult; R07.89 Other chest pain; E03.9 Hypothyroidism, unspecified; I10 Essential (primary) hypertension; E78.5 Hyperlipidemia, unspecified; F17.210 Nicotine dependence, cigarettes, uncomplicated; E11.69 Type 2 diabetes mellitus with other specified complication; E05.90 Thyrotoxicosis, unspecified without thyrotoxic crisis or storm; E66.01 Morbid (severe) obesity due to excess calories; E78.00 Pure hypercholesterolemia, unspecified; Z20.822 Contact with and (suspected) exposure to COVID-19; I25.10 Atherosclerotic heart disease of native coronary artery without angina pectoris; Z88.0 Allergy status to penicillin; Z88.8 Allergy status to other drugs, medicaments and biological substances; Z91.030 Bee allergy status; Z91.014 Allergy to mammalian meats; Z79.82 Long term (current) use of aspirin; Z79.84 Long term (current) use of oral hypoglycemic drugs; Z79.899 Other long term (current) drug therapy; Z90.49 Acquired absence of other specified parts of digestive tract; Z98.51 Tubal ligation status; Z98.890 Other specified postprocedural states
CPT/HCPCS: 36415; 36416; 70450; 70551; 71045; 71275; 74174; 78452; 80048; 80053; 80061; 80306; 81003; 83036; 83690; 83735; 84439; 84443; 84484; 85025; 85379; 93005; 93017; 93458; 94760; 96361; 96372; 96374; 96375; 99152; A9500; C1769; C1894; G0378; J0153; J1644; J1650; J1885; J2001; J2060; J2250; J2270; J3010; Q0169; Q9967; U0003; U0005

== ENCOUNTER 2023-12-16 14:00 | Inpatient (IN) | payer BC ==
[2023-12-17 12:45] VITALS: BMI 48.3
[2023-12-18] MEDS ORDERED: EPINEPHrine 1 MG/ML VIAL ONE (10:55)
[2023-12-18] MEDS ORDERED: Bupivacaine 0.25% HCL 30 ML VIAL ONE (10:56)
[2023-12-18] MEDS ORDERED: Propofol 500 MG/50 ML VIAL ONE (11:29)
[2023-12-18] MEDS ORDERED: PROPOFOL 20 ML ONE ×2 (11:31→13:40)
[2023-12-18] MEDS ORDERED: Midazolam HCl 2 mg/2 ml Vial ONE (11:44)
[2023-12-18] MEDS ORDERED: CEFAZOLIN 2 GM VIAL ONE (11:52)
[2023-12-18] MEDS ORDERED: Sodium Chloride 0.9% 0 ML ONE (11:52)
[2023-12-18] MEDS ORDERED: Heparin 5,000 UNITS/ML VIAL ONE (11:56)
[2023-12-18] MEDS ORDERED: fentaNYL PF 100 MCG/2 ML SYRINGE ONE ×2 (11:57→14:06)
[2023-12-18] MEDS ORDERED: Lidocaine 2% 6 ML (Jelly) SYR ONE (12:04)
[2023-12-18] MEDS ORDERED: Lidocaine 1% PF 5 ML VIAL ONE (12:04)
[2023-12-18] MEDS ORDERED: Rocuronium Bromide 10 MG/ML (10ML VIAL) ONE (12:04)
[2023-12-18] MEDS ORDERED: LevoFLOXacin D5W 500 mg (100 mL) BAG ONE (12:08)
[2023-12-18] MEDS ORDERED: Dexamethasone 20 MG/5 ML VIAL ONE (12:20)
[2023-12-18] MEDS ORDERED: ePHEDrine Sulfate 50 MG/10 ML VIAL ONE (12:22)
[2023-12-18] MEDS ORDERED: Glycopyrrolate 0.2 MG/ML 5 ML SYRINGE ONE (12:31)
[2023-12-18] MEDS ORDERED: Ondansetron PF 4 MG/2 ML Vial ONE (13:55)
[2023-12-18] MEDS ORDERED: SUGAMMADEX SODIUM 200 MG/2 ML VIAL ONE (13:58)
[2023-12-18] MEDS ORDERED: Ondansetron PF 4 MG/2 ML Vial IVP PRN (14:21)
[2023-12-18] MEDS ORDERED: Glucagon 1 MG/ML KIT IM PRN (14:21)
[2023-12-18] MEDS ORDERED: Dextrose 5% in Water 1,000 ML IV PRN (14:21)
[2023-12-18] MEDS ORDERED: diphenhydrAMINE 50 MG/ML VIAL IVP PRN ×2 (14:21→14:33)
[2023-12-18] MEDS ORDERED: Ipratropium/Albuterol 3 ML NEB NEB PRN (14:21)
[2023-12-18] MEDS ORDERED: Dextrose 50% Abboject 50 ML SYRINGE SLOW IVP PRN (14:21)
[2023-12-18] MEDS ORDERED: Promethazine HCl 25 MG/ML VIAL IM PRN ×2 (14:21→14:33)
[2023-12-18] MEDS ORDERED: hydrALAZINE 20 MG/ML VIAL SLOW IVP PRN (14:21)
[2023-12-18] MEDS ORDERED: diphenhydrAMINE 50 MG/ML VIAL IM PRN (14:33)
[2023-12-18] MEDS ORDERED: FENTANYL 500 MCG/10 ML VIAL 2,000 MCG in Sodium Chloride 0.9% 60 ML IV PRN (14:33)
[2023-12-18] MEDS ORDERED: diphenhydrAMINE 25 MG CAP PO PRN (14:33)
[2023-12-18] MEDS ORDERED: Naloxone HCl 0.4 mg/ml Vial IV PRN (14:33)
[2023-12-18] MEDS ORDERED: Ondansetron HCl/PF 4 MG/2 ML Vial IVP PRN (14:33)
[2023-12-18] MEDS ORDERED: Communication Order-Pharmacy FS SCH (14:45)
[2023-12-18] MEDS ORDERED: Promethazine HCl 25 MG/ML VIAL ONE (15:10)
[2023-12-18] MEDS ORDERED: fentaNYL 50 mcg/mL 1 mL Vial ONE (15:10)
[2023-12-18] MEDS ORDERED: Fentanyl CADD 100 ML IVPB SCH (15:15)
[2023-12-18] MEDS: 1/2 NS w/Potassium 20 mEq 1,000 ML IV SCH (17:43)
[2023-12-18] MEDS: Ondansetron PF 4 MG/2 ML Vial IVP PRN (19:50)
[2023-12-18] MEDS: Promethazine HCl 25 MG/ML VIAL IM PRN (23:16)
[2023-12-19] MEDS: Hydrocodone-Acetamin 15 ML UDCUP PO PRN (00:11)
[2023-12-19 06:33] LABS: #Basophils Less than 0.03 10x3/uL (0.0-0.2); #Eosinphils Less than 0.03 10x3/uL (0.0-0.7); %Basophils 0.1 % (0.0-1.0); %Lymphocytes 8.3 % (21.0-51.0); %Monocytes 5.2 % (0.0-10.0); %Neutrophils 86.1 % (42.0-75.0); Hematocrit 42.8 % (36.0-47.0); Hemoglobin 13.8 g/dL (12.0-16.0); Mean Corpuscular HGB CONC 32.2 g/dL (32.0-36.0); Mean Corpuscular Hemoglobin 29.2 pg (27.0-31.0); Mean Corpuscular Volume 90.5 fL (78.0-98.0); Mean Platelet Volume 12.1 fL (7.4-10.4); Platelet Count 171 10x3/uL (130-400); Red Blood Cell (RBC) Count 4.73 mill/uL (4.20-5.40)
[2023-12-19 06:54] LABS: Anion Gap 15 mmol/L (10-20); BUN (Urea Nitrogen) 7 mg/dL (9.8-20.1); Calc. Creatinine Clearance 153 mL/min (70-130); Calcium 9.8 mg/dL (7.8-10.44); Carbon Dioxide 21 mmol/L (22-29); Chloride 105 mmol/L (98-107); Estimated GFR 92; Glucose 151 mg/dL (70-105); Potassium 3.9 mmol/L (3.5-5.1); Sodium 137 mmol/L (136-145)
[2023-12-19 08:45] VITALS: BP 138/83; TEMP 98.4
[2023-12-19] MEDS: Pantoprazole 40 MG VIAL IVP SCH (09:07)
[2023-12-19] MEDS: Enoxaparin 40 MG (0.4 mL) SYRINGE SC SCH (09:07)
== END 2023-12-19 10:56 | disposition home or self-care (01) | DRG 621 ==
LOC: EDSTATUS 12-18 14:00 → SURG A 12-18 14:24
PROVIDERS: ADMIT Surgery; ATTEND Surgery
PROC: 0D164ZA Bypass Stomach to Jejunum, Percutaneous Endoscopic Approach (ICD-10-PCS; principal; 2023-12-18)
PROC: 8E0W4CZ Robotic Assisted Procedure of Trunk Region, Percutaneous Endoscopic Approach (ICD-10-PCS; 2023-12-18)
PROC: 3E033XZ Introduction of Vasopressor into Peripheral Vein, Percutaneous Approach (ICD-10-PCS; 2023-12-18)
DX: E66.01 Morbid (severe) obesity due to excess calories (principal); Z68.42 Body mass index [BMI] 45.0-49.9, adult; E78.00 Pure hypercholesterolemia, unspecified; E11.9 Type 2 diabetes mellitus without complications; Z82.49 Family history of ischemic heart disease and other diseases of the circulatory system; K21.9 Gastro-esophageal reflux disease without esophagitis
CPT/HCPCS: 36415; 80048; 85025; C9113; J0171; J0665; J1100; J1644; J1650; J1956; J2250; J2405; J2550; J2704; J3010; J3480; J3490